=== PATIENT | female | born 1955 | race African-American/Black ===

== ENCOUNTER 2022-04-16 11:48 | Emergency (ER) | payer BC, SELFPAY ==
--- NOTE | ~2022-04-16 | XR_ITS ---
EXAMINATION: XR chest 1V portable INDICATION: Hypertension TECHNIQUE: Portable AP chest at 1220 hours COMPARISON: None available FINDINGS: The lungs are free of acute opacities. No pleural effusion or pneumothorax. The cardiomedia stinal silhouette is normal. The visualized bones and soft tissues are unremarkable. IMPRESSION: 1. No acute cardiopulmonary abnormality. Reviewed, dictated and finalized at location A. REPORTING CONSULTANT
[2022-04-16 11:52] VITALS: BP 144/86; PULSE 72; RESP 20; TEMP 36.4; O2SAT 100
[2022-04-16 12:01] LABS: Glucose Point of Care 82 mg/dl (65-105)
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
--- NOTE | 2022-04-16 12:13 | ECG_ITS ---
Measurements Intervals [place] Rate: 62 P: 46 FL: 171 QRS: -12 QRSD: 99 T: 69 QT: 390 QTc: 397 Interpretive Statements SINUS RHYTHM WITH OCCASIONAL SUPRAVENTRICULAR PREMATURE COMPLEXES POOR R-WAVE PROGRESSION ABNORMAL ECG NO PREVIOUS ECG AVAILABLE FOR COMPARISON Electronically Signed On 04-17-2022 11:51:37 [employer]AVA DEVELOPER WITH [employer] CLEARANCE by Kevin Callejas M.D.
[2022-04-16 12:15] VITALS: BP 136/77; PULSE 62; RESP 14; O2SAT 100
[2022-04-16 12:45] LABS: Basophils Percent Auto 0.5 % (0.2-1.2); Eosinophils Absolute Auto 0.1 K/mm3 (0-0.3); Eosinophils Percent Auto 2.4 % (0-4.4); Hematocrit 35.4 % (37.0-47.0); Hemoglobin 11.9 g/dL (12.0-15.0); Immature Granulocyte Absolute 0.01 K/mm3 (0.00-0.031); Immature Granulocyte Percent A 0.3 % (0-0.5); Lymphocytes Absolute Auto 1.29 K/mm3 (0.9-3.2); Lymphocytes Percent Auto 34.8 % (18.3-44.2); Mean Corpuscular HGB Conc 33.6 g/dl (32-36); Mean Corpuscular Hemoglobin 29.5 pg (26-34); Mean Corpuscular Volume 87.6 fl (80-100); Mean Platelet Volume 10.7 fl (7.4-10.4); Monocytes Absolute Auto 0.2 K/mm3 (0.1-0.6); Monocytes Percent Auto 5.4 % (2.6-8.5); Neutrophils Absolute Auto 2.1 K/mm3 (1.3-6.7); Neutrophils Percent Auto 56.6 % (45.5-73.1); Platelet Count Result 233 k/mm3 (150-375); Red Blood Count 4.04 M/mm3 (4.2-5.4); Red Cell Distribution Width 15.9 % (11.5-14.5); White Blood Count 3.7 K/mm3 (4.5-10.0)
[2022-04-16] MEDS: SODIUM CHLORIDE 0.9% IV 1,000 ML 999 ML IV CONT (12:50)
[2022-04-16 12:58] LABS: Alanine Aminotransferase 13 U/L (6-35); Albumin Level 3.9 g/dL (3.5-5.1); Alkaline Phosphatase 75 U/L (38-126); Anion Gap 3 mmol/L (8-16); Aspartate Amino Transferase 20 U/L (14-36); Bilirubin,Total 0.4 mg/dL (0.2-1.3); Blood Urea Nitrogen 16 mg/dL (7-17); Calcium 9.5 mg/dL (8.4-10.2); Carbon Dioxide 31 mmol/L (22-30); Chloride 105 mmol/L (98-107); Estimated CRCL calculation 75 ml/min; Estimated Glomerular Filt Rate > 60; Glucose 101 mg/dL (65-110); Potassium 3.7 mmol/L (3.4-5.0); Sodium 139 mmol/L (137-145)
[2022-04-16 13:10] LABS: Troponin I < 0.012 ng/mL (0.000-0.034)
[2022-04-16 13:45] VITALS: BP 167/98; PULSE 66; RESP 14; O2SAT 100
[2022-04-16 14:53] VITALS: BP 150/95; PULSE 71; RESP 14; O2SAT 100
--- NOTE | 2022-04-16 15:18 | PCCCNOTE ---
Pt does not want to return to [facility]. Called [facility] and tried [facility] and [facility] but was declined d/t psych issues. Informed Dr Oquendo that with psych issues pt will be difficult to place; spoke with pt and inform her that [facility] will work with her to meet her expectations or will assist with finding new placement.
--- NOTE | 2022-04-16 19:03 | PC.NURSE ---
To [facility] via [facility].
== END 2022-04-16 19:02 ==
PROVIDERS: Emergency Provider Emergency Medicine
DX: F29 Unspecified psychosis not due to a substance or known physiological condition (principal); F20.9 Schizophrenia, unspecified; T43.506A Underdosing of unspecified antipsychotics and neuroleptics, initial encounter; Z91.128 Patient's intentional underdosing of medication regimen for other reason
CPT/HCPCS: 36415; 71045; 80053; 82948; 84484; 85025; 93005; 96360; 99284; A4565; J7030

== ENCOUNTER 2022-09-22 13:06 | Emergency (ER) | payer MEDICARE, MEDICAID, SELFPAY ==
[2022-09-22] VITALS (7 sets, daily range): BP systolic 137–168; BP diastolic 81–109; PULSE 63–88; RESP 12–18; TEMP 36.7; O2SAT 97–100
--- NOTE | 2022-09-22 14:52 | PC.NURSE ---
Pt arrived with bilateral calf dressings dated 09/20/22.
--- NOTE | 2022-09-22 16:11 | ED.GENADULT ---
HPI - General Adult General Chief complaint: Wound/Laceration Stated complaint: bed sores Time Seen by Provider: 09/22/22 14:51 History of Present Illness HPI narrative: 66-year-old female presented to the emergency department for evaluation of chronic leg wounds. Patient states that she does reside [facility] and has not had frequent evaluation by the wound care nurse. Patient was concerned that she was not getting adequate care so she presented to the emergency department for evaluation. Related Data Allergies Allergy/AdvReac Type Severity Reaction Status Date / Time No Known Allergies Allergy Verified 09/22/22 17:11 Review of Systems Review of Systems: All systems reviewed & are unremarkable except as noted in HPI and below Exam Narrative: APPEARANCE: Well appearing, no pain, no distress, well-nourished. HEAD: normocephalic, atraumatic. EYES: PERRLA/EOMI, conjunctivae clear. NOSE: Normal no drainage RESPIRATORY: Airway patent, respirations nonlabored. Clear to auscultation bilaterally, no rales, rhonchi, wheezing. CARDIOVASCULAR: Regular rate and rhythm without murmurs rubs or gallops. ABDOMINAL: Soft, nontender, nondistended, normal bowel sounds MUSCULOSKELETAL: Moves all extremities. Strength/ROM intact, No edema, No calf tenderness. NEURO: Alert. Cranial nerves II through XII intact. Good gait. Good coordination SKIN: Changes of stasis dermatitis on bilateral legs with some areas where the plaques have come off and patient has some open sores. No evidence of active infection. Course Course Emergency Course: 66-year-old female present emergency department for evaluation of of chronic wounds on her legs. Patient appears to have chronic plaques secondary possibly to stasis dermatitis. Patient had no evidence of infection. Patient was concerned she was not getting proper wound care. Patient did have her wounds redressed and all questions and concerns were addressed. Patient was discharged back to her care facility. Vital Signs Vital signs: Vital Signs Temperature 98.1 F 09/22/22 13:08 Pulse Rate 88 09/22/22 13:08 Respiratory Rate 18 09/22/22 13:08 Blood Pressure 168/109 H 09/22/22 13:08 Pulse Oximetry 100 09/22/22 13:08 Oxygen Delivery Room Air 09/22/22 13:08 Temperature 98.1 F 09/22/22 13:08 Pulse Rate 63 09/22/22 17:27 Respiratory Rate 18 09/22/22 17:27 Blood Pressure 154/84 H 09/22/22 17:27 Pulse Oximetry 100 09/22/22 17:27 Oxygen Delivery Room Air 09/22/22 13:08 Medical Decision Making Differential Diagnosis Differential Diagnosis: Stasis dermatitis, cellulitis, chronic wound Vital Signs Vital Signs: Vital Signs Temperature 98.1 F 09/22/22 13:08 Pulse Rate 88 09/22/22 13:08 Respiratory Rate 18 09/22/22 13:08 Blood Pressure 168/109 H 09/22/22 13:08 Pulse Oximetry 100 09/22/22 13:08 Oxygen Delivery Room Air 09/22/22 13:08 Temperature 98.1 F 09/22/22 13:08 Pulse Rate 63 09/22/22 17:27 Respiratory Rate 18 09/22/22 17:27 Blood Pressure 154/84 H 09/22/22 17:27 Pulse Oximetry 100 09/22/22 17:27 Oxygen Delivery Room Air 09/22/22 13:08 Discharge Plan Discharge Clinical Impression: Chronic stasis dermatitis, Chronic wound Patient Disposition: Home, Self-Care Condition: Stable Instructions: Antibiotic Form Additional Instructions: Xeroform gauze and Curlex on leg wounds. Patient will need to be evaluated by the wound care nurse. Follow-up/Referrals: Jose Loomis MD [Primary Care Provider] -
--- NOTE | 2022-09-22 17:02 | PC.NURSE ---
Called [facility] to give report, no answer.
--- NOTE | 2022-09-22 17:05 | PC.NURSE ---
attempted to call [facility] to give report for a second time, no answer.
== END 2022-09-22 17:47 ==
PROVIDERS: Emergency Provider Emergency Medicine; PCP Hospitalist
DX: I87.2 Venous insufficiency (chronic) (peripheral) (principal)
CPT/HCPCS: 99282